=== PATIENT | female | born 1975 | race Caucasian/White ===

== ENCOUNTER 2017-01-29 18:13 | Observation (INO) | payer OTHER ==
[~2017-01-29] VITALS: Ht 157.5 cm; Wt 95.3 kg
[~2017-01-29 18:13] MED LIST: AMOXICILLIN 8751 TAB PO; MOTRIN 800800 MG/TAB PO; NORCO 325 MG-51 TAB PO; PERCOCET 325 MG1 TA2 PO; ZOFRAN ODT4 MG PO
[2017-01-29] MEDS ORDERED: MICROGESTIN FE1 TA1 PO (18:22)
[2017-01-29 19:05] LABS: BASO % 0.3 % (0.0-2.0); EOS # 0.1 (0.0-0.7); EOS % 1.2 % (0-4.0); GRAN # 8.8 (1.4-6.5); GRAN % 78.4 % (42.2-75.2); HEMATOCRIT 21.2 % (37.0-47.0); HEMOGLOBIN 6.3 g/dl (12.5-16.0); LYMPH # 1.8 (1.2-3.4); LYMPH % 15.7 % (20.0-51.0); MEAN CELL VOLUME 80 fl (80.0-100.0); MEAN CORPUSCULAR HEMOGLOBIN 24 pg (27.0-31.0); MEAN CORPUSCULAR HGB CONC 30 g/dl (33.0-37.0); MEAN PLATELET VOLUME 9.8 fl (7.4-10.4); MONO # 0.4 (0.1-0.6); MONO % 3.9 % (1.7-9.3); PLATELET COUNT 399 K/mm3 (130-400); RED BLOOD COUNT 2.66 M/mm3 (4.10-5.30); REDCELL DISTRIBUTION WIDTH-CV 19.8 % (11.5-14.5); WHITE BLOOD COUNT 11.2 K/mm3 (4.8-10.8)
[2017-01-29 19:14] LABS: ALBUMIN 3.8 gm/dL (3.5-5.0); BILIRUBIN,TOTAL 0.3 mg/dL (0.0-1.0); CALCIUM 8.8 mg/dL (8.4-10.2); CREATININE, serum 0.76 mg/dL (0.52-1.25); POTASSIUM 3.8 mmol/L (3.4-5.0); TOTAL PROTEIN 6.8 gm/dL (6.4-8.2)
[2017-01-29 21:14] VITALS: BP 142/73; PULSE 85; TEMP 98.2
[2017-01-29 21:58] VITALS: BP 135/69; PULSE 81; TEMP 98
[2017-01-29 22:14] VITALS: BP 156/88; PULSE 86; TEMP 97.9
[2017-01-29 22:45] VITALS: BP 128/53; PULSE 86; TEMP 98
[2017-01-29 23:47] VITALS: BP 139/82; PULSE 90; TEMP 98.1
[2017-01-30] VITALS (14 sets, daily range): BP systolic 113–151; BP diastolic 64–92; PULSE 72–89; TEMP 97.8–98.2
[2017-01-30 06:30] LABS: HEMATOCRIT 25.5 % (37.0-47.0); HEMOGLOBIN 7.9 g/dl (12.5-16.0)
[2017-01-30] MEDS ORDERED: NORETHINDRONE AC5 MG PO (10:47)
[2017-01-30 13:12] LABS: HEMATOCRIT 28.7 % (37.0-47.0); HEMOGLOBIN 9.1 g/dl (12.5-16.0)
== END 2017-01-30 14:10 | disposition home or self-care (01) ==
LOC: COL.ER 18:13 → OB 19:59
PROVIDERS: Family Medicine; Obstetrics & Gynecology
DX: N92.1 Excessive and frequent menstruation with irregular cycle (principal); D64.9 Anemia, unspecified; D25.9 Leiomyoma of uterus, unspecified; E66.01 Morbid (severe) obesity due to excess calories; Z90.710 Acquired absence of both cervix and uterus; Z90.722 Acquired absence of ovaries, bilateral
CPT/HCPCS: G0378; J1940; J7030; P9016

== ENCOUNTER → 2017-02-06 | Outpatient (REF) ==
[~2017-02-06] MED LIST changes: +MICROGESTIN FE1 TA1 PO; +NORETHINDRONE AC5 MG PO
[2017-02-06 15:24] LABS: MEAN CELL VOLUME 82 fl (80.0-100.0); MEAN CORPUSCULAR HGB CONC 30 g/dl (33.0-37.0); MEAN PLATELET VOLUME 9.7 fl (7.4-10.4); PLATELET COUNT 355 K/mm3 (130-400); RED BLOOD COUNT 3.12 M/mm3 (4.10-5.30); REDCELL DISTRIBUTION WIDTH-CV 19.3 % (11.5-14.5); WHITE BLOOD COUNT 15.2 K/mm3 (4.8-10.8)
[2017-02-06 15:25] LABS: HEMATOCRIT 25.5 % (37.0-47.0); HEMOGLOBIN 7.6 g/dl (12.5-16.0); MEAN CORPUSCULAR HEMOGLOBIN 24 pg (27.0-31.0)
[2017-02-06 15:26] LABS: ADD PATHOLOGY DIFF REVIEW NO
[2017-02-06 15:33] LABS: BAND 12 % (0-10); METAMYELOCYTE 1 % (0-0); NEUTROPHILS 76 % (42.0-75.2); TOTAL CELLS COUNTED 100
[2017-02-06 15:34] LABS: ANISOCYTOSIS 3+; HYPOCHROMIA 2+; MICROCYTOSIS 1+; PLATELET ESTIMATE NORMAL (NORMAL)
[2017-02-06 15:35] LABS: POLYCHROMASIA 1+
== END ==
LOC: ZMSC 15:17
PROVIDERS: Obstetrics & Gynecology
DX: Z02.89 Encounter for other administrative examinations (principal)